=== PATIENT | female | born 2000 | race Caucasian/White ===

== ENCOUNTER 2020-06-05 21:19 | Emergency (ER) | payer OTHER ==
[~2020-06-05] VITALS: Ht 162.6 cm; Wt 103.8 kg
--- NOTE | 2020-06-05 21:49 | PHYS DOC ---
General Adult HPI: HPI: " My right ear is killing me... and I get in 6 days....." Patient is a 19 year old female who presents with above hx and complaints of severe right ear pain and discharge. Patient has history of multiple ear infections. Patient denies any history of trauma. Patient denies any history of travel. Patient denies any specific ill contacts. Patient normally healthy. No history immunosuppression. No history of barotrauma. Review of Systems: Review of Systems: Constitutional: Denies fever or chills Eyes: Denies change in visual acuity HENT: History of nasal congestion and severe right ear pain Respiratory: Denies cough or shortness of breath Cardiovascular: Denies chest pain or edema GI: Denies abdominal pain, nausea, vomiting, bloody stools or diarrhea : Denies dysuria Musculoskeletal: Denies back pain or joint pain Integument: Denies rash Neurologic: Denies headache, focal weakness or sensory changes Endocrine: Denies polyuria or polydipsia Lymphatic: Denies swollen glands Psychiatric: Denies depression or anxiety Family History: Family History: Noncontributory to presentation Current Medications: Current Meds: See nursing for home meds Allergies: Allergies: Allergic to sulfa Physical Exam: PE: Constitutional: Well developed, well nourished, in acute distress, non-toxic appearance. [] HENT: Normocephalic, atraumatic, left external ears normal, oropharynx moist, no oral exudates, nose mild nasal congestion and clear rhinorrhea. Patient's right ear has injection of canal. Markedly red TM. Eyes: PERRLA, EOMI, conjunctiva normal, no discharge. [] Neck: Normal range of motion, no tenderness, supple, no stridor. [] Cardiovascular:Heart rate regular rhythm, no murmur [] Lungs & Thorax: Bilateral breath sounds clear to auscultation [] Abdomen: Bowel sounds normal, soft, no tenderness, no masses, no pulsatile masses. [] Skin: Warm, dry, no erythema, no rash. [] Back: No tenderness, no CVA tenderness. [] Extremities: No tenderness, no cyanosis, no clubbing, ROM intact, no edema. [] Neurologic: Alert and oriented X 3, normal motor function, normal sensory function, no focal deficits noted. [] Psychologic: Affect anxious, judgement normal, mood normal. [] EKG: EKG: [] Radiology/Procedures: Radiology/Procedures: [] Heart Score: C/O Chest Pain: N/A Risk Factors: Risk Factors: DM, Current or recent (<one month) smoker, HTN, HLP, family history of CAD, obesity. Risk Scores: Score 0 - 3: 2.5% MACE over next 6 weeks - Discharge Home Score 4 - 6: 20.3% MACE over next 6 weeks - Admit for Clinical Observation Score 7 - 10: 72.7% MACE over next 6 weeks - Early Invasive Strategies Course & Med Decision Making: Course & Med Decision Making Pertinent Labs and Imaging studies reviewed. (See chart for details) Patient take Tylenol and ibuprofen as needed for pain. Patient use Cortisporin eardrops 2 drops to right ear 4 times a day. Patient take Augmentin 875 twice a day .. Patient follow-up with primary care. Patient return if any concerns. Patient warned that antibiotics may inactivate control. Follow-up primary care. Return if any concerns. Patient consider taking Benadryl 25 to 50 mg to help clear fluid right ear. For severe pain may take a Percocet. Impression: 1. Right ear external and otitis media [] Dragon Disclaimer: Dragon Disclaimer: This electronic medical record was generated, in whole or in part, using a voice recognition dictation system. Departure Departure: Referrals: PCP,UNKNOWN (PCP) Scripts Amoxicillin/Potassium Clav (AUGMENTIN 875-125 TABLET) 1 Each Tablet 1 TAB PO BID for otitis for 10 Days, #20 TAB 0 Refills Prov: ZACHARY CASTILLO MD 06/05/20 Oxycodone HCl/Acetaminophen (Percocet 5-325 mg Tablet) 1 Each Tablet 1 TAB PO PRN QID PRN for otitis MDD 4 Tablet(s) for 30 Days, #30 TAB 0 Refills Prov: ZACHARY CASTILLO MD 06/05/20 Dragon Disclaimer This chart was dictated in whole or in part using Voice Recognition software in a busy, high-work load, and often noisy Emergency Department environment. It may contain unintended and wholly unrecognized errors or omissions. Dragon Disclaimer This chart was dictated in whole or in part using Voice Recognition software in a busy, high-work load, and often noisy Emergency Department environment. It may contain unintended and wholly unrecognized errors or omissions. ZACHARY CASTILLO MD Jun 05, 2020 21:49
[2020-06-05] MEDS ORDERED: AMOX1TAB61 PO (21:54)
[2020-06-05] MEDS ORDERED: OXYC-325 PO (21:54)
[2020-06-05 22:18] VITALS: BP 124/76
[2020-06-05] MEDS ORDERED: AMOXICILLIN/K CLAV 875/125MG TABLET. PO ONE (22:30)
[2020-06-05] MEDS ORDERED: NEOMYCIN/POLYMYXIN/HC OTIC SUSPENSION 10ML BOTTLE. AD ONE (22:30)
[2020-06-05] MEDS ORDERED: oxyCODONE/APAP 5/325 1 TAB TABLET PO ONE (22:30)
== END 2020-06-05 22:18 | disposition home or self-care (01) ==
LOC: ER 21:19
DX: H66.91 Otitis media, unspecified, right ear (principal); Z88.2 Allergy status to sulfonamides
CPT/HCPCS: 99284